=== PATIENT | female | born 1950 | race Hispanic/Latino ===

== ENCOUNTER 2019-12-26 10:24 | Outpatient (CLI) | payer BC, MEDICARE ==
--- NOTE | 2019-12-26 14:13 | XRay Report ---
LUMBOSACRAL SPINE 3 VIEWS INDICATION / CLINICAL INFORMATION: ACUTE LEFT SIDED LOW BACK PAIN W/O SCIATICA M54.5 COMPARISON: None available. FINDINGS: BONES / JOINT(S): There is mild degenerative disc disease at several levels, most prominent at L4-5. There are hypertrophic changes involving the facet joints at L4-5 and L5-S1 bilaterally. The pedicles are intact and the SI joints are normal. There is no evidence of fracture, subluxation or destructiv e lesion. SOFT TISSUES: There are atherosclerotic calcifications involving aorta without aneurysm. ADDITIONAL FINDINGS: None. IMPRESSION: Mild spondylosis without acute osseous abnormality. Signer Name: Kulwinder Baez MD Signed: 12/26/2019 2:08 PM Workstation Name: [id number]
== END 2019-12-26 10:25 | disposition home or self-care (01) ==
LOC: SPVIMAG 10:24
PROVIDERS: ATTEND Internal Medicine
DX: M47.817 Spondylosis without myelopathy or radiculopathy, lumbosacral region (principal); I70.0 Atherosclerosis of aorta
CPT/HCPCS: 72100